=== PATIENT | male | born 2000 | race Caucasian/White ===

== ENCOUNTER 2018-03-27 23:42 | Observation (INO) | payer BC ==
[2018-03-27] MEDS ORDERED: SODIUM CHLORIDE 0.9% 1,000 ML IV STA (23:57)
[2018-03-28] MEDS ORDERED: MORPHINE SULFATE 2 MG/ML SYRINGE IVP STA (00:09)
[2018-03-28] MEDS ORDERED: KETOROLAC 30 MG/ML 1 ML VIAL IVP STA (00:09)
[2018-03-28] MEDS ORDERED: ONDANSETRON 4 MG/2 ML VIAL IVP STA (00:09)
--- NOTE | 2018-03-28 00:33 | ED ---
Abdominal Pain HPI <ViktoriyaPhan weems - Last Filed: 03/28/18 02:23> - General Source: patient, RN notes reviewed, old records reviewed Mode of arrival: ambulatory Limitations: no limitations <MarkMeka - Last Filed: 03/28/18 02:28> - General Chief Complaint: Abdominal Pain Stated Complaint: Abd Pain Time Seen by Provider: 03/27/18 23:51 - History of Present Illness Initial Comments: Patient is a 17-year-old male who presents emergency Department due to complaint of onset of left-sided abdominal pain 4 hours. Patient reports that he's had some associated nausea and vomiting. He reports that he initially started to have pain this afternoon. I discussed pain. He did have a large bowel movement. Patient reports he continued have some pain. He did do some stool softeners and used a suppository but did not have a bowel movement his pain progressively got worse. Worse with ambulation and movement. Patient reports is felt chilled. No changes in urination. No chest pain or short of breath. He has no past medical history. (Meka Flores) - Related Data Home Medications Medication Instructions Recorded Confirmed No Known Home Medications 09/22/15 09/22/15 Allergies Allergy/AdvReac Type Severity Reaction Status Date / Time No Known Allergies Allergy Verified 03/27/18 23:47 Review of Systems ROS Other: All systems not noted in ROS Statement are negative. <ViktoriyadankPhan - Last Filed: 03/28/18 02:23> ROS Other: All systems not noted in ROS Statement are negative. <Yolande Floresily - Last Filed: 03/28/18 02:28> ROS Statement: Those systems with pertinent positive or pertinent negative responses have been documented in the HPI. Past Medical History Past Medical History: No Reported History History of Any Multi-Drug Resistant Organisms: None Reported Past Surgical History: No Surgical Hx Reported Past Psychological History: Anxiety, Depression Smoking Status: Current every day smoker Past Alcohol Use History: Occasional Past Drug Use History: Marijuana <Meka Flores - Last Filed: 03/28/18 02:28> General Exam <ViktoriyadankPhan - Last Filed: 03/28/18 02:23> Limitations: no limitations General appearance: alert, in no apparent distress Head exam: Present: atraumatic, normocephalic, normal inspection Eye exam: Present: normal appearance, PERRL, EOMI. Absent: scleral icterus, conjunctival injection, periorbital swelling ENT exam: Present: normal exam, mucous membranes moist Neck exam: Present: normal inspection. Absent: tenderness, meningismus, lymphadenopathy Respiratory exam: Present: normal lung sounds bilaterally. Absent: respiratory distress, wheezes, rales, rhonchi, stridor Cardiovascular Exam: Present: regular rate, normal rhythm, normal heart sounds. Absent: systolic murmur, diastolic murmur, rubs, gallop, clicks GI/Abdominal exam: Present: soft, tenderness (Lower quadrant tenderness, guarding or rebound tenderness.), guarding, rebound, normal bowel sounds. Absent: distended, rigid Extremities exam: Present: normal inspection, full ROM, normal capillary refill. Absent: tenderness, pedal edema, joint swelling, calf tenderness Back exam: Present: normal inspection Neurological exam: Present: alert, oriented X3, CN II-XII intact Psychiatric exam: Present: normal affect, normal mood <Meka Flores - Last Filed: 03/28/18 02:28> - General Exam Comments Initial Comments: 17-year-old female. Alert and oriented. Patient appears in moderate discomfort. (Meka Flores) Vital Signs 03/27/18 23:44 Temperature 97 F L Pulse Rate 65 Respiratory 16 Rate Blood Pressure 138/85 O2 Sat by Pulse 100 Oximetry Medical Decision Making - Lab Data Result diagrams: 03/28/18 00:02 03/28/18 00:02 <Phan Mcgovern - Last Filed: 03/28/18 02:23> - Lab Data Result diagrams: 03/28/18 00:02 03/28/18 00:02 <Meka Flores - Last Filed: 03/28/18 02:28> - Medical Decision Making I saw this patient in conjunction with the physician assistant corporate secretary. I performed independent history and physical exam. Agree with case management. Agree with history of physical as well as management. Case discussed with Dr. Davison, who will admit patient. (Phan Mcgovern) Patient is a 17-year-old healthy male presents emergency department today with severe right-sided abdominal pain. Worse over the past 4 hours. He's had multiple blood cells of vomiting. Patient is very thin. Patient was given IV fluids and laboratory obtained. Mild leukocytosis with blood cell count 14, 000. He has significant guarding and rebound tenderness. Patient's computed tomography scan was not 100% conclusive for appendicitis but does note a dilated structure consistent with the appendix. Patient has very little intra- abdominal fat for inflammatory changes. At this time patient's case was discussed with Dr. Huertas who discussed the case with Dr. Goldstein. He accepts admission and request Patient started on IV antibiotics. Patient was admitted this time for IV fluids. Nothing by mouth. Patient started on IV Zosyn. ( Mark,Meka) - Lab Data Lab Results 03/28/18 03/28/18 03/28/18 Range/Units 00:02 00:02 00:02 WBC 14.3 H (4.0-11.0) k/uL RBC 4.95 (4.30-5.90) m/uL Hgb 15.2 (13.0-17.5) gm/dL Hct 45.3 (39.0-53.0) % MCV 91.5 (80.0-100.0) fL MCH 30.6 (25.0-35.0) pg MCHC 33.5 (31.0-37.0) g/dL RDW 12.6 (11.5-15.5) % Plt Count 177 (150-450) k/uL Neutrophils % 90 % Lymphocytes % 7 % Monocytes % 3 % Eosinophils % 0 % Basophils % 0 % Neutrophils # 12.8 H (1.3-7.7) k/uL Lymphocytes # 1.0 (1.0-4.8) k/uL Monocytes # 0.4 (0-1.0) k/uL Eosinophils # 0.0 (0-0.7) k/uL Basophils # 0.0 (0-0.2) k/uL PT 11.7 (9.0-12.0) sec INR 1.2 H (<1.2) APTT 24.8 (22.0-30.0) sec Sodium 138 (137-145) mmol/L Potassium 3.8 (3.5-5.1) mmol/L Chloride 102 (98-107) mmol/L Carbon Dioxide 24 (22-30) mmol/L Anion Gap 12 mmol/L BUN 15 (9-20) mg/dL Creatinine 0.83 (0.66-1.25) mg/dL Est GFR (CKD-EPI)AfAm >90 (>60 ml/min/1.73 sqM) Est GFR (CKD-EPI)NonAf >90 (>60 ml/min/1.73 sqM) Glucose 119 H (74-99) mg/dL Calcium 9.9 (8.4-10.2) mg/dL Total Bilirubin 1.0 (0.2-1.3) mg/dL AST 46 (17-59) U/L ALT 55 (21-72) U/L Alkaline Phosphatase 78 (38-126) U/L Total Protein 7.5 (6.3-8.2) g/dL Albumin 4.8 (3.5-5.0) g/dL Amylase 67 (30-110) U/L Lipase 96 (23-300) U/L Disposition <Phan Mcgovern - Last Filed: 03/28/18 02:23> Is patient prescribed a controlled substance at d/c from ED?: No Time of Disposition: 02:28 <Meka Flores - Last Filed: 03/28/18 02:28> Clinical Impression: Acute appendicitis Disposition: ADMITTED IP TO THIS HOSP Condition: Stable Referrals: Frank Concepcion Jr, DO [Primary Care Provider] - 1-2 days
[2018-03-28 00:40] LABS: Basophils % (A) 0 %; Eosinophils % (A) 0 %; HCT 45.3 % (39.0-53.0); HGB 15.2 gm/dL (13.0-17.5); Lymphocytes % (A) 7 %; MCH 30.6 pg (25.0-35.0); MCHC 33.5 g/dL (31.0-37.0); MCV 91.5 fL (80.0-100.0); Mean Platelet Volume 6.9; Monocytes # (A) 0.4 k/uL (0-1.0); Monocytes % (A) 3 %; Neutrophils # (A) 12.8 k/uL (1.3-7.7); Neutrophils % (A) 90 %; Platelet Count 177 k/uL (150-450); RBC 4.95 m/uL (4.30-5.90); RDW 12.6 % (11.5-15.5); WBC 14.3 k/uL (4.0-11.0)
[2018-03-28 00:49] LABS: INR 1.2 (<1.2); Partial Thromboplastin Time 24.8 sec (22.0-30.0); Prothrombin Time 11.7 sec (9.0-12.0)
[2018-03-28 00:52] LABS: ALT 55 U/L (21-72); AST 46 U/L (17-59); Albumin 4.8 g/dL (3.5-5.0); Alkaline Phosphatase 78 U/L (38-126); Amylase 67 U/L (30-110); Anion Gap 12 mmol/L; Blood Urea Nitrogen 15 mg/dL (9-20); Calcium 9.9 mg/dL (8.4-10.2); Carbon Dioxide 24 mmol/L (22-30); Chloride 102 mmol/L (98-107); Glucose 119 mg/dL (74-99); Lipase 96 U/L (23-300); Potassium 3.8 mmol/L (3.5-5.1); Sodium 138 mmol/L (137-145); Total Protein 7.5 g/dL (6.3-8.2)
--- NOTE | 2018-03-28 02:08 | CT ---
EXAMINATION TYPE: CT abdomen pelvis w con DATE OF EXAM: 03/28/2018 COMPARISON: None HISTORY: RLQ pain CT DLP: 372 mGycm Automated exposure control for dose reduction was used. TECHNIQUE: Helical acquisition of images was performed from the lung bases through the pelvis. CONTRAST: Performed without Oral Contrast and with IV Contrast, patient injected with 100mL mL of Isovue 300. FINDINGS: Lung bases are clear. There is no pleural effusion. Heart size is normal. There is no pericardial eff usion. Liver spleen pancreas gallbladder appear normal. Bile ducts are not dilated. There is no adren al mass. Kidneys show satisfactory contrast opacification. There is no hydronephrosis. Bladder disten ds smoothly. I see no definite free fluid in the pelvis. There is no inguinal hernia. I see no intest inal wall thickening. There are no dilated loops. The appendix is difficult to identify because of la ck of intra-abdominal fat. I see no fat stranding. There is however a tubular structure that measures 10 m that could be slightly dilated fluid-filled appendix. There is no evidence of mesenteric edema or adenopathy. There is no sign of free air. The lumbar spine is intact. Bony pelvis is intact. IMPRESSION: I SEE NO INFLAMMATORY CHANGES OF THE FAT IN THE RIGHT LOWER QUADRANT. THERE IS HOWEVER POSSIBLE FLUID FILLED DISTENDED APPENDIX. APPENDICITIS IS NOT EXCLUDED.
[2018-03-28] MEDS ORDERED: ACETAMINOPHEN TAB 325 MG TAB PO PRN ×2 (02:24→18:29)
[2018-03-28] MEDS ORDERED: NALOXONE 0.4 MG/ML 1 ML VIAL IV PRN ×2 (02:24→18:29)
[2018-03-28] MEDS ORDERED: ONDANSETRON 4 MG/2 ML VIAL IVP PRN (02:24)
[2018-03-28] MEDS ORDERED: IBUPROFEN 400 MG TAB PO PRN (02:24)
[2018-03-28] MEDS ORDERED: PIPERACILLIN-TAZOBACTAM 3.375 GM in SODIUM CHLORIDE 0.9% 100 ML IVPB STA (02:26)
[2018-03-28 04:30] VITALS: BMI 20.2
[2018-03-28] MEDS: MORPHINE SULFATE 4 MG/ML SYRINGE IV PRN ×3 (04:35→22:31)
[2018-03-28] MEDS: SODIUM CHLORIDE 0.9% 1,000 ML IV SCH ×3 (04:39→23:32)
[2018-03-28] MEDS: KETOROLAC 30 MG/ML 1 ML VIAL IVP PRN (07:19)
[2018-03-28 10:40] LABS: Amorphous Sediment,Urine Occasional /hpf; Appearance,Urine Clear (Clear); Bilirubin,Urine Negative (Negative); Blood,Urine Trace (Negative); Color,Urine Yellow; Glucose,Urine (UA) Negative (Negative); Ketones,Urine 4+ (Negative); Leukocyte Esterase,Urine Negative (Negative); Mucus,Urine Rare /hpf; Nitrite,Urine Negative (Negative); Protein,Urine 1+ (Negative); RBC,Urine 7 /hpf (0-5); Urobilinogen,Urine <2.0 mg/dL (<2.0); WBC,Urine 2 /hpf (0-5)
[2018-03-28 10:41] LABS: Specific Gravity,Urine >1.050 (1.001-1.035)
--- NOTE | 2018-03-28 11:06 | P.GSHP ---
History of Present Illness H&P Date: 03/28/18 17-year-old male who has no past medical history presented to the emergency room with a chief complaint of developing right lower quadrant abdominal pain onset 4-5 hours prior. Patient stated he felt nauseated did vomit. Patient stated at first he thought he needed to have a bowel movement. Did move his bowels stated he had a large bowel movement continued to have pain. Patient stated he had intense abdominal cramping after having the bowel movement felt like he needed to have another bowel movement did use [id number] stool softener and a suppository stated he did not have a bowel movement after that the pain to the right lower quadrant became more intense. Patient stated he was doubled up could not ambulate walking made it worse. [place] feverish did not take his temp came into the emergency room to be evaluated for the above- mentioned symptoms. White count on admission 14.3 liver enzymes within normal limits amylase 67 lipase 96 in the emergency room had a CAT scan of the abdomen and pelvis with contrast reviewing the report right lower quadrant possible fluid-filled distended appendix appendicitis not excluded no sign of free air - Review of Systems Comment: Essentially unremarkable except as mentioned in the present illness Past Medical History Past Medical History: No Reported History History of Any Multi-Drug Resistant Organisms: None Reported Past Surgical History: No Surgical Hx Reported Past Psychological History: Anxiety, Depression Smoking Status: Current some day smoker Past Alcohol Use History: Occasional Past Drug Use History: Marijuana Medications and Allergies Home Medications Medication Instructions Recorded Confirmed Type No Known Home Medications 03/28/18 03/28/18 History Allergies Allergy/AdvReac Type Severity Reaction Status Date / Time No Known Allergies Allergy Verified 03/28/18 09:42 Surgical - Exam Vital Signs Temp Pulse Resp BP Pulse Ox 97 F L 65 16 138/85 100 03/27/18 23:44 03/27/18 23:44 03/27/18 23:44 03/27/18 23:44 03/27/18 23:44 GENERAL APPEARANCE: 17-year-old male patient is alert, oriented, in no acute distress. Just received IV pain medication states effective for reducing pain VITAL SIGNS: Reviewed HEENT: Head is normocephalic and atraumatic. Pupils are equal and reactive. The nares are patent. Oropharynx is clear without lesions. NECK: Supple without lymphadenopathy. Traches midline. HEART: S1, S2. Regular rate and rhythm. No murmur noted denying chest pain LUNGS: No crackles or wheezes are heard. Good air movement bilaterally no cough no shortness of breath ABDOMEN: Soft, tenderness right lower quadrant, nondistended with good bowel sounds. No peritoneal signs. No palpable organomegaly or masses. EXTREMITIES: Normal skin color and turgor. No cyanosis, rash, ulceration, clubbing or edema. Radial pedal pulses are 2/4 bilaterally. NEUROLOGICAL: No focal deficits. Strength and sensation are grossly intact. Results - Labs 03/28/18 00:02 03/28/18 00:02 Abnormal Lab Results - Last 24 Hours (Table) 03/27/18 03/28/18 03/28/18 Range/Units 09:30 00:02 00:02 WBC 14.3 H (4.0-11.0) k/uL Neutrophils # 12.8 H (1.3-7.7) k/uL INR (<1.2) Glucose 119 H (74-99) mg/dL Ur Specific [place] >1.050 H (1.001-1.035) Urine Protein 1+ H (Negative) Urine Ketones 4+ H (Negative) Urine Blood Trace H (Negative) Urine RBC 7 H (0-5) /hpf Amorphous Sediment Occasional H (None) /hpf Urine Mucus Rare H (None) /hpf 03/28/18 Range/Units 00:02 WBC (4.0-11.0) k/uL Neutrophils # (1.3-7.7) k/uL INR 1.2 H (<1.2) Glucose (74-99) mg/dL Ur Specific [place] (1.001-1.035) Urine Protein (Negative) Urine Ketones (Negative) Urine Blood (Negative) Urine RBC (0-5) /hpf Amorphous Sediment (None) /hpf Urine Mucus (None) /hpf Diabetes panel 03/28/18 Range/Units 00:02 Sodium 138 (137-145) mmol/L Potassium 3.8 (3.5-5.1) mmol/L Chloride 102 (98-107) mmol/L Carbon Dioxide 24 (22-30) mmol/L BUN 15 (9-20) mg/dL Creatinine 0.83 (0.66-1.25) mg/dL Glucose 119 H (74-99) mg/dL Calcium 9.9 (8.4-10.2) mg/dL AST 46 (17-59) U/L ALT 55 (21-72) U/L Alkaline Phosphatase 78 (38-126) U/L Total Protein 7.5 (6.3-8.2) g/dL Albumin 4.8 (3.5-5.0) g/dL Calcium panel 03/28/18 Range/Units 00:02 Calcium 9.9 (8.4-10.2) mg/dL Albumin 4.8 (3.5-5.0) g/dL Pituitary panel 03/28/18 Range/Units 00:02 Sodium 138 (137-145) mmol/L Potassium 3.8 (3.5-5.1) mmol/L Chloride 102 (98-107) mmol/L Carbon Dioxide 24 (22-30) mmol/L BUN 15 (9-20) mg/dL Creatinine 0.83 (0.66-1.25) mg/dL Glucose 119 H (74-99) mg/dL Calcium 9.9 (8.4-10.2) mg/dL Adrenal panel 03/28/18 Range/Units 00:02 Sodium 138 (137-145) mmol/L Potassium 3.8 (3.5-5.1) mmol/L Chloride 102 (98-107) mmol/L Carbon Dioxide 24 (22-30) mmol/L BUN 15 (9-20) mg/dL Creatinine 0.83 (0.66-1.25) mg/dL Glucose 119 H (74-99) mg/dL Calcium 9.9 (8.4-10.2) mg/dL Total Bilirubin 1.0 (0.2-1.3) mg/dL AST 46 (17-59) U/L ALT 55 (21-72) U/L Alkaline Phosphatase 78 (38-126) U/L Total Protein 7.5 (6.3-8.2) g/dL Albumin 4.8 (3.5-5.0) g/dL Assessment and Plan Assessment: Impression Present on admission right lower quadrant pain suspect due to appendicitis CAT scan abdomen and pelvis with contrast obtained on March 28 showed possible fluid-filled distended appendix appendicitis not excluded Present on admission leukocytosis suspect reactive Plan IV fluid for hydration IV Zosyn as ordered Scheduled today for a lap appendectomy Nothing by mouth Pain control Will follow clinical course closely with further recommendations The above impression and plan of care have been discussed and directed by signing physician. Linda St nurse practitioner acting as scribe for signing physician.
[2018-03-28] MEDS: PIPERACILLIN-TAZOBACTAM 3.375 GM in SODIUM CHLORIDE 0.9% 100 ML IVPB SCH ×2 (11:38→19:30)
[2018-03-28] MEDS ORDERED: IV FLUID CONTINUATION 600 ML IV ONE (12:30)
[2018-03-28] MEDS ORDERED: HYDROmorphone 1 MG/ML 1 ML SYRINGE IVP ONE (13:56)
[2018-03-28] MEDS ORDERED: SODIUM CHLORIDE 0.9% 50 ML with ceFAZolin 2,000 MG IV ONE ×2 (17:07)
[2018-03-28] MEDS ORDERED: BUPIVACAIN-EPI 0.25%-1:200,000 30 ML VIAL SQ ONE (17:26)
[2018-03-28] MEDS ORDERED: ONDANSETRON 4 MG/2 ML VIAL ONE (17:58)
[2018-03-28] MEDS ORDERED: NEOSTIGMINE 1 MG/ML 10 ML VIAL ONE (17:58)
[2018-03-28] MEDS ORDERED: fentaNYL (PF) 50 MCG/ML 2 ML AMP ONE (17:58)
[2018-03-28] MEDS ORDERED: ROCURONIUM BROMIDE 10 MG/ML 10 ML VIAL IV ONE (17:58)
[2018-03-28] MEDS ORDERED: GLYCOPYRROLATE 0.2 MG/ML 2 ML VIAL ONE (17:58)
[2018-03-28] MEDS ORDERED: DEXAMETHASONE SOD PHOS (MDV) 100 MG/10 ML VIAL ONE (17:58)
[2018-03-28] MEDS ORDERED: LIDOCAINE 1% INJ 10MG/ML (20 ML MDV) ONE (17:58)
[2018-03-28] MEDS ORDERED: PROPOFOL 10 MG/ML 20 ML VIAL IV ONE (17:58)
[2018-03-28] MEDS ORDERED: MIDAZOLAM 2 MG/2 ML VIAL ONE (17:58)
[2018-03-28] MEDS ORDERED: LACTATED RINGERS 1,000 ML IV ONE ×2 (18:18→18:29)
--- NOTE | 2018-03-28 18:28 | P.OP ---
Date of Procedure: 03/28/18 Preoperative Diagnosis: Acute appendicitis Postoperative Diagnosis: Acute appendicitis Procedure(s) Performed: Laparoscopic appendectomy Anesthesia: ARI Surgeon: Adolfo Davison Estimated Blood Loss (ml): 5 Pathology: other (Appendix) Condition: stable Disposition: PACU Description of Procedure: HaThe patient's placed on the operating table in the supine position. The patient received general anesthesia. The abdomen was prepped and draped in the usual sterile fashion. The skin was anesthetized 1% local Xylocaine at the trocar sites. Using an 11 blade the skin was incised at the umbilicus. The umbilicus was grasped with a [place] clamp and then a Veress needle was placed into the peritoneal cavity. Position of the Veress needle was confirmed with positive drop test. After adequate insufflation a 5 mm trocar was placed into the peritoneal cavity. The abdomen was further insufflated. And then the laparoscope was placed in the peritoneal cavity. Next a 5 mm trocar was placed in the midline suprapubic position. And then a 10 mm trocar was placed in the midline epigastric position. The patient was rotated with the right side up and in Trendelenburg. The appendix was visualized. The appendix appeared to be inflamed. The appendix was grasped and then using the Harmonic scissors the mesoappendix was divided. A PDS Endoloop was then placed around the base of the appendix. And then the appendix was divided using Harmonic scissors. The appendix was placed into an Endo Catch and brought out through the 10 mm trocar site. The abdomen was irrigated. There is no bleeding seen. The trochars withdrawn. The skin was closed interrupted 3-0 Monocryl suture. Dermabond dressing was applied. Patient was sent to recovery room in stable condition.
[2018-03-28] MEDS ORDERED: HYDROcodone/APAP 5-325MG 1 EACH TAB PO PRN (18:29)
[2018-03-28] MEDS ORDERED: HYDROmorphone 1 MG/ML 1 ML SYRINGE IVP PRN (18:29)
[2018-03-28] MEDS ORDERED: METOCLOPRAMIDE 5 MG/ML 2 ML VIAL IVP PRN (18:29)
[2018-03-28 18:46] VITALS: RESP 16
[2018-03-28] MEDS ORDERED: KETOROLAC 30 MG/ML 1 ML VIAL IVP ONE (18:48)
[2018-03-28] MEDS: HYDROmorphone 1 MG/ML 1 ML SYRINGE IVP ONE ×2 (18:53→19:02)
[2018-03-29] MEDS: PIPERACILLIN-TAZOBACTAM 3.375 GM in SODIUM CHLORIDE 0.9% 100 ML IVPB SCH ×2 (02:15→11:24)
[2018-03-29] MEDS: MORPHINE SULFATE 4 MG/ML SYRINGE IV PRN ×2 (02:15→07:07)
[2018-03-29 07:19] VITALS: BP 102/59; TEMP 97.9
[2018-03-29 07:48] LABS: Basophils % (A) 0 %; Eosinophils % (A) 0 %; HCT 39.4 % (39.0-53.0); HGB 13.7 gm/dL (13.0-17.5); Lymphocytes # (A) 0.6 k/uL (1.0-4.8); Lymphocytes % (A) 6 %; MCH 32.1 pg (25.0-35.0); MCHC 34.8 g/dL (31.0-37.0); MCV 92.4 fL (80.0-100.0); Mean Platelet Volume 7.2; Monocytes # (A) 0.4 k/uL (0-1.0); Monocytes % (A) 4 %; Neutrophils # (A) 8.3 k/uL (1.3-7.7); Neutrophils % (A) 89 %; Platelet Count 135 k/uL (150-450); RBC 4.26 m/uL (4.30-5.90); RDW 12.2 % (11.5-15.5); WBC 9.3 k/uL (4.0-11.0)
[2018-03-29 08:05] LABS: ALT 36 U/L (21-72); AST 22 U/L (17-59); Albumin 3.6 g/dL (3.5-5.0); Alkaline Phosphatase 52 U/L (38-126); Anion Gap 7 mmol/L; Blood Urea Nitrogen 11 mg/dL (9-20); Calcium 9.2 mg/dL (8.4-10.2); Carbon Dioxide 24 mmol/L (22-30); Chloride 107 mmol/L (98-107); Glucose 108 mg/dL (74-99); Potassium 4.8 mmol/L (3.5-5.1); Sodium 138 mmol/L (137-145); Total Bilirubin 1.3 mg/dL (0.2-1.3)
[2018-03-29 08:53] VITALS: PULSE 63
[2018-03-29] MEDS ORDERED: ENOXAPARIN 40 MG/0.4 ML SYRINGE SQ SCH (09:00)
[2018-03-29] MEDS: SODIUM CHLORIDE 0.9% 1,000 ML IV SCH (11:24)
[2018-03-29] MEDS: KETOROLAC 30 MG/ML 1 ML VIAL IVP PRN (11:47)
--- NOTE | 2018-03-29 12:57 | P.DS ---
Providers Date of admission: 03/28/18 03:42 Expected date of discharge: 03/29/18 Attending physician: Adolfo Davison Consults: 03/28/18 18:29 Consult Physician Routine Consulting Provider: Frank Concepcion Jr Consult Reason/Comments: Medical management Do you want consulting provider notified?: Yes Primary care physician: Laird Hospital Course: A 17-year-old who presented to the emergency room with a chief complaint of developing right lower quadrant abdominal pain with nausea and vomiting. Patient stated the pain occurred 4-5 hours prior to presenting to the emergency room. Patient stated he could not walk a couple to from the pain in his right lower quadrant. Patient stated that walking made it worse. Did have a CAT scan in the emergency room it showed possible distended appendix appendicitis is not excluded no sign of free air. Liver enzymes were normal. White count 14.3. On admission repeat the CBC down 9.3 Patient underwent on March 28 laparoscopic appendectomy for acute appendicitis postop no events surgical dressing site dry patient was ambulatory on the unit pain medication effective for pain control and tolerating diet felt to be appropriate to be discharged Impression discharge diagnoses Present on admission right lower quadrant abdominal pain suspect due to an acute appendicitis Status post March 28 laparoscopic appendectomy for acute appendicitis Present on admission leukocytosis suspect reactive resolved The above impression and plan of care have been discussed and directed by signing physician. Linda St nurse practitioner acting as scribe for signing physician. Patient Condition at Discharge: Stable Plan - Discharge Summary Discharge Rx Participant: Yes New Discharge Prescriptions: New Acetaminophen Tab [Tylenol] 650 mg PO Q6HR PRN #30 tab PRN Reason: Mild Pain Or Fever > 100.5 HYDROcodone/APAP 5-325MG [[place] 5-325] 1 each PO Q4HR PRN #12 tab PRN Reason: Mild Pain Discharge Medication List Acetaminophen Tab [Tylenol] 650 mg PO Q6HR PRN #30 tab 03/29/18 [Rx] HYDROcodone/APAP 5-325MG [[place] 5-325] 1 each PO Q4HR PRN #12 tab 03/29/18 [Rx] Follow up Appointment(s)/Referral(s): Frank Concepcion Jr, [Primary Care Provider] - 2 Weeks Adolfo Davison MD [STAFF PHYSICIAN] - 1 Week Activity/Diet/Wound Care/Special Instructions: No tub bath for six weeks. Shower daily. No lifting over 10 pounds for the next 2 weeks. do not remove the plastic dressing until seen in follow-up visit May use ice packs to surgical site. No driving while taking narcotic for pain. Discharge Disposition: HOME SELF-CARE
--- NOTE | 2018-03-29 14:07 | P.CONS ---
History of Present Illness - Reason for Consult Consult date: 03/29/18 medical management Requesting physician: Adolfo Davison - Chief Complaint abdominal pain - History of Present Illness 17-year-old male who presented to the emergency room with a chief complaint of abdominal pain. The patient was found to have appendicitis. The patient underwent laparoscopic appendectomy on 03/28/[address] Concepcion was consulted for medical management. The patient denies previous medical history or surgical history. He states he takes no medications at home. Patient does report he has a medical marijuana card and smokes marijuana on a regular basis. The patient was seen postoperatively in the surgical unit. patient denies shortness of breath or chest pain. Denies cough or congestion. Pain is tolerable at this time. Blood pressure has been stable. He is afebrile. Maintaining oxygen saturations greater then 92% on room air. White count 9.3. Hemoglobin 13.7. Review of Systems Those systems with pertinent positive or pertinent negative responses have been documented in the HPI Past Medical History Past Medical History: No Reported History History of Any Multi-Drug Resistant Organisms: None Reported Past Surgical History: No Surgical Hx Reported Past Psychological History: Anxiety, Depression Smoking Status: Current some day smoker Past Alcohol Use History: Occasional Past Drug Use History: Marijuana Medications and Allergies Home Medications Medication Instructions Recorded Confirmed Type No Known Home Medications 03/28/18 03/28/18 History Allergies Allergy/AdvReac Type Severity Reaction Status Date / Time No Known Allergies Allergy Verified 03/28/18 09:42 Physical Exam Vitals: Vital Signs Temp Pulse Pulse Resp BP Pulse Ox 03/29/18 07:00 97.9 F 61 63 16 102/59 98 03/29/18 00:34 97.4 F L 63 16 99/53 97 03/28/18 21:25 54 L 111/62 95 03/28/18 21:08 63 107/52 96 03/28/18 20:54 57 L 92/52 97 03/28/18 20:37 55 L 100/60 97 03/28/18 20:22 59 L 99/59 98 03/28/18 20:07 64 110/63 96 03/28/18 19:52 60 104/64 96 03/28/18 19:37 66 107/62 94 L 03/28/18 19:22 97.5 F L 62 107/65 96 03/28/18 19:06 72 16 117/73 95 03/28/18 18:51 76 16 124/78 96 03/28/18 18:36 98 F 82 16 138/89 98 03/28/18 16:43 98.2 F 58 L 114/73 100 03/28/18 15:00 98.0 F 60 18 107/66 99 03/28/18 12:46 98.4 F 58 L 117/71 98 Intake and Output 03/28/18 03/29/18 03/29/18 22:59 06:59 14:59 Intake Total 1100 900 Balance 1100 900 Intake: IV 1100 Intake, IV Titration 900 Amount Lactated Ringers 1,000 ml 900 @ 100 mls/hr IV .Q10H ONE Rx#:[id number] Other: Voiding Method Toilet # Voids 2 3 GENERAL: This is a 17-year-old male in no apparent distress at the time of examination. Pleasant and cooperative. HEENT: Head is atraumatic, normocephalic. Pupils are equal, round, and reactive to light. Sclerae anicteric. Conjunctivae are clear. Mucus membranes of the mouth are moist. Neck is supple. RESPIRATORY: Clear to auscultation. No wheezes, rales, or rhonchi. No use of accessory muscles. Patient maintaining oxygen saturation greater than 92% CARDIOVASCULAR: Regular rate and rhythm. S1 and S2 noted. No systolic or diastolic murmur auscultated. No JVD noted. No S3 or S4 noted. GASTROINTESTINAL: No distention noted. Abdomen soft and round. Bowel sounds auscultated x 4 quadrants. Appropriate surgical tenderness noted. INTEGUMENTARY: No cyanosis. No jaundice. No rashes noted. No cellulitis noted. EXTREMITIES: 2+ peripheral pulses. No evidence of peripheral edema. NEUROLOGIC: Cranial nerves II-XII intact. PSYCHIATRIC: Awake, alert, and oriented X 3. Appropriate affect. Intact judgement and insight. Results CBC & Chem 7: 03/29/18 07:26 03/29/18 07:26 Labs: Abnormal Lab Results - Last 24 Hours (Table) 03/29/18 03/29/18 Range/Units 07:26 07:26 RBC 4.26 L (4.30-5.90) m/uL Plt Count 135 L (150-450) k/uL Neutrophils # 8.3 H (1.3-7.7) k/uL Lymphocytes # 0.6 L (1.0-4.8) k/uL Glucose 108 H (74-99) mg/dL Total Protein 6.0 L (6.3-8.2) g/dL Microbiology - Last 24 Hours (Table) 03/28/18 00:02 Blood Culture - Preliminary Blood No Growth after 24 hours Assessment and Plan Plan: ASSESSMENT: Appendicitis, status post laparoscopic appendectomy Abdominal pain, secondary to above Cannabis use PLAN: Continue postoperative surgical care per Dr. Davison. pain control. Activity as tolerated. GI/DVT prophylaxis. Monitor vital signs and address as appropriate. Further recommendations pending patient's course. Thank you for this consultation We will continue to follow with Alli during his hospitalization Patient is cleared for discharge from a medical standpoint when cleared by attending/admitting physician Nurse practitioner note has been reviewed by physician. Signing provider agrees with the documented findings, assessment, and plan of care.
== END 2018-03-29 14:30 | disposition home or self-care (01) ==
LOC: EC 23:42 → 4SSUR 03-28 03:42
PROVIDERS: ADMIT Surgery; ATTEND Surgery
DX: K35.80 Unspecified acute appendicitis (principal); D72.829 Elevated white blood cell count, unspecified; F41.9 Anxiety disorder, unspecified; F32.9 Major depressive disorder, single episode, unspecified; F17.200 Nicotine dependence, unspecified, uncomplicated; Z79.899 Other long term (current) drug therapy
CPT/HCPCS: 99285 ×2; 44970; 96374 ×2; 96375 ×2; 96361 ×2; 96376; 36415; 88304; 80053 ×2; 82150; 83690; 85025 ×2; 85610; 85730; 81001; 87040; 74177; G0378 ×2; J2543 ×2; J2250; J2270 ×3; J2710; J2405; J2001; J1650; J3010; J1885 ×2; J1170; J0690; J1100; J2704; Q9967

== ENCOUNTER 2019-03-10 20:46 | Emergency (ER) | payer BC ==
[2019-03-10] MEDS ORDERED: MORPHINE SULFATE 2 MG/ML SYRINGE IVP STA (21:25)
--- NOTE | 2019-03-10 21:54 | XR ---
EXAMINATION TYPE: XR chest 1V portable DATE OF EXAM: 03/10/2019 COMPARISON: NONE HISTORY: Chest pain TECHNIQUE: Single frontal view of the chest is obtained. FINDINGS: Heart and mediastinum are normal. Lungs are clear. Diaphragm is normal. Bony thorax appear s normal. IMPRESSION: Normal chest.
[2019-03-10] MEDS ORDERED: MORPHINE SULFATE 4 MG/ML SYRINGE IM STA (21:58)
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
[2019-03-10] MEDS ORDERED: ACET/COD 300 MG/30 MG STARTER PACK 6 TAB BTL PO STA (23:01)
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
[2019-03-10 23:28] VITALS: BP 116/78; PULSE 64; RESP 18; TEMP 98
== END 2019-03-10 23:27 | disposition home or self-care (01) ==
LOC: EC 20:46
DX: S43.101A Unspecified dislocation of right acromioclavicular joint, initial encounter (principal); M54.2 Cervicalgia; Z53.8 Procedure and treatment not carried out for other reasons; Z87.891 Personal history of nicotine dependence; W20.8XXA Other cause of strike by thrown, projected or falling object, initial encounter; Y93.89 Activity, other specified
CPT/HCPCS: 71045; 72125; 70450; 99284; 96372; J2270

== ENCOUNTER 2022-12-23 10:01 | Emergency (ER) | payer BC ==
[2022-12-23 10:10] VITALS: RESP 18
--- NOTE | 2022-12-23 11:13 | ED ---
General Adult HPI - General Chief complaint: Urogenital Stated complaint: testical pain Source: patient Mode of arrival: ambulatory - History of Present Illness Initial comments: 22-year-old male presenting to the ED with a chief complaint of testicular pain. Patient states he has had intermittent left testicular pain and swelling over the past couple months. Denies dysuria or discharge. No urinary complaints however states when he strains hard while urinating this reproduces the pain. No other complaints. - Related Data Previous Rx's Medication Instructions Recorded Acetaminophen Tab [Tylenol] 650 mg PO Q6HR PRN #30 tab 03/29/18 HYDROcodone/APAP 5-325MG [[place] 1 each PO Q4HR PRN #12 tab 03/29/18 5-325] Allergies Allergy/AdvReac Type Severity Reaction Status Date / Time No Known Allergies Allergy Verified 12/23/22 10:10 Review of Systems ROS Statement: Those systems with pertinent positive or pertinent negative responses have been documented in the HPI. ROS Other: All systems not noted in ROS Statement are negative. Past Medical History Past Medical History: No Reported History History of Any Multi-Drug Resistant Organisms: None Reported Past Surgical History: Appendectomy Past Psychological History: Anxiety, Depression Smoking Status: Never smoker, Vaper Past Alcohol Use History: None Reported Past Drug Use History: Marijuana General Exam Limitations: no limitations General appearance: alert, in no apparent distress Eye exam: Present: normal appearance Neck exam: Present: normal inspection Respiratory exam: Present: normal lung sounds bilaterally Cardiovascular Exam: Present: regular rate, normal rhythm GI/Abdominal exam: Present: soft exam: Present: other (Normal testicular lie. No significant scrotal swelling. Left testicular tenderness to palpation. Under area of tenderness small mass felt consistent with a varicocele. Cremasteric reflex intact.) Extremities exam: Present: normal inspection Back exam: Present: normal inspection Neurological exam: Present: alert, oriented X3 Skin exam: Present: warm, dry Course Vital Signs 12/23/22 10:06 Temperature 97.9 F Pulse Rate 71 Respiratory 18 Rate Blood Pressure 125/79 O2 Sat by Pulse 99 Oximetry Medical Decision Making - Medical Decision Making Was pt. sent in by a medical professional or institution (, PA, TECHNICAL PROGRAMS MANAGER, urgent care, hospital, or halfway...) When possible be specific @ -No Did you speak to anyone other than the patient for history (EMS, parent, family, police, friend...)? What history was obtained from this source @ -No Did you review nursing and triage notes (agree or disagree)? Why? @ -I reviewed and agree with nursing and triage notes Were old charts reviewed (outside hosp., previous admission, EMS record, old EKG, old radiological studies, urgent care reports/EKG's, halfway records)? Report findings @ -No old charts were reviewed Differential Diagnosis (chest pain, altered mental status, abdominal pain women, abdominal pain men, vaginal bleeding, weakness, fever, dyspnea, syncope, headache, dizziness, GI bleed, back pain, seizure, CVA, palpatations, mental health, musculoskeletal)? @ -Urinary tract infection, testicular torsion, hydrocele. This is not meant to be an all-inclusive list. EKG interpreted by me (3pts min.). @ -None X-rays interpreted by me (1pt min.). @ -None done CT interpreted by me (1pt min.). @ -None done U/S interpreted by me (1pt. min.). @ -Ultrasound showed small bilateral hydroceles. On the left there is a small varicocele. No evidence of torsion. What testing was considered but not performed or refused? (CT, X-rays, U/S, labs)? Why? @ -None What meds were considered but not given or refused? Why? @ -None Did you discuss the management of the patient with other professionals (professionals i.e. , PA, TECHNICAL PROGRAMS MANAGER, lab, RT, psych nurse, social secretary, evaluation analyst, teacher, program officer, case finisher)? Give summary @ -No Was smoking cessation discussed for >3mins.? @ -No Was critical care preformed (if so, how long)? @ -No Were there social determinants of health that impacted care today? How? (Homelessness, low income, unemployed, alcoholism, drug addiction, transportation, low edu. Level, literacy, decrease access to med. care, alf, rehab)? @ -No Was there de-escalation of care discussed even if they declined (Discuss DNR or withdrawal of care, Hospice)? DNR status @ -No What co-morbidities impacted this encounter? (DM, HTN, Smoking, COPD, CAD, Cancer, CVA, ARF, Chemo, Hep., AIDS, mental health diagnosis, sleep apnea, morbid obesity)? @ -None Was patient admitted / discharged? Hospital course, mention meds given and route, prescriptions, significant lab abnormalities, going to OR and other pertinent info. @ -Discharge. Urinalysis unremarkable. US showed small varicocele on the left. No evidence of torsion. Advised Tylenol/NSAIDs as needed. Provided referral to urology to follow up as needed. Discharged home in stable condition. Discussed return precautions patient who verbalizes agreement. Undiagnosed new problem with uncertain prognosis? @ -No Drug Therapy requiring intensive monitoring for toxicity (Heparin, Nitro, Insulin, Cardizem)? @ -No Were any procedures done? @ -No Diagnosis/symptom? @ -Varicocele Acute, or Chronic, or Acute on Chronic? @ -Chronic Uncomplicated (without systemic symptoms) or Complicated (systemic symptoms)? @ -Uncomplicated Side effects of treatment? @ -No Exacerbation, Progression, or Severe Exacerbation? @ -No Poses a threat to life or bodily function? How? (Chest pain, [place], [place], pneumonia, PE, COPD, DKA, ARF, appy, cholecystitis, CVA, Diverticulitis, Homicidal, Suicidal, threat to staff... and all critical care pts) @ -No - Lab Data Lab Results 12/23/22 Range/Units 11:36 Urine Color Light Yellow Urine Appearance Clear (Clear) Urine pH 6.5 (5.0-8.0) Ur Specific [place] 1.015 (1.001-1.035) Urine Protein Negative (Negative) Urine Glucose (UA) Negative (Negative) Urine Ketones Negative (Negative) Urine Blood Negative (Negative) Urine Nitrite Negative (Negative) Urine Bilirubin Negative (Negative) Urine Urobilinogen <2.0 (<2.0) mg/dL Ur Leukocyte Esterase Negative (Negative) Disposition Clinical Impression: Varicocele Disposition: HOME SELF-CARE Condition: Good Instructions (If sedation given, give patient instructions): Varicocele (ED), Testicle Pain (ED) Is patient prescribed a controlled substance at d/c from ED?: No Referrals: Frank Concepcion Jr, DO [Doctor of Osteopathic Medicine] - 1-2 days Yohan Hernandez MD [STAFF PHYSICIAN] - 1-2 days Time of Disposition: 12:53
[2022-12-23 12:05] LABS: Appearance,Urine Clear (Clear); Color,Urine Light Yellow; PH, Urine 6.5 (5.0-8.0); Specific Gravity,Urine 1.015 (1.001-1.035)
[2022-12-23 12:06] LABS: Bilirubin,Urine Negative (Negative); Blood,Urine Negative (Negative); Glucose,Urine (UA) Negative (Negative); Ketones,Urine Negative (Negative); Leukocyte Esterase,Urine Negative (Negative); Nitrite,Urine Negative (Negative); Protein,Urine Negative (Negative); Urobilinogen,Urine <2.0 mg/dL (<2.0)
--- NOTE | 2022-12-23 12:34 | US ---
EXAMINATION TYPE: US scrotum with doppler. TECHNIQUE: Grayscale and color Doppler Duplex imaging performed of the scrotum. DATE OF EXAM: 12/23/2022 COMPARISON: NONE CLINICAL INDICATION: Male, 22 years old with history of L testicular pain; left lateral and inferior testicle pain ongoing for a few months, no swelling, no injury, feels like a cord to the patient EXAM MEASUREMENTS: TESTICLES: Right Testicle: 4.3 x 3.6 x 2.6 cm Left Testicle: 4.3 x 3.0 x 2.3 cm EPIDIDYMIS HEAD: Right Epididymis: 1.0 cm Left Epididymis: 0.8 cm Doppler performed to assess for testicular vascularity; good bilateral color flow and waveforms are s een. There is no evidence of testicular torsion. Presence of hydroceles: mild bilaterally in lateral views Presence of varicoceles: yes on the left at site of patient's pain IMPRESSION: 1. No testicular mass. There are tiny bilateral hydroceles. 2. Varicocele is present on the left and is seen while scanning at the site of patient's pain.
[2022-12-23 13:04] VITALS: BP 111/72; PULSE 81; TEMP 98.2
== END 2022-12-23 13:04 | disposition home or self-care (01) ==
LOC: EC 10:01
DX: I86.1 Scrotal varices (principal); N43.3 Hydrocele, unspecified; F17.290 Nicotine dependence, other tobacco product, uncomplicated; F12.90 Cannabis use, unspecified, uncomplicated
CPT/HCPCS: 76870; 81003; 93975; 99284

== ENCOUNTER 2023-07-19 09:38 | Emergency (ER) | payer OTHER, BC ==
[2023-07-19 09:46] VITALS: RESP 18; TEMP 97.6
--- NOTE | 2023-07-19 10:34 | XR ---
EXAMINATION TYPE: XR hand complete RT DATE OF EXAM: 07/19/2023 COMPARISON: NONE HISTORY: 22-year-old male laceration second and fourth digits, pain. TECHNIQUE: 3 views FINDINGS: No retained radiopaque foreign body seen. No acute fracture, subluxation, or dislocation. J oint spaces are maintained. IMPRESSION: No acute osseous abnormality seen. No retained radiopaque foreign body.
--- NOTE | 2023-07-19 10:39 | ED ---
Upper Extremity HPI - General Chief Complaint: Extremity Injury, Upper Stated Complaint: [facility]-Hand injury Time Seen by Provider: 07/19/23 09:47 Source: patient, RN notes reviewed Mode of arrival: ambulatory Limitations: no limitations - History of Present Illness Initial Comments: 22-year-old male presents emergency department with chief complaint of right hand injury. Patient states that he had a part at work found to his hand he states it weighed approximately 90 pounds. Patient states tetanus up-to-date he has a small abrasion he has pain over his fourth and fifth metacarpal region. No paresthesias - Related Data Previous Rx's Medication Instructions Recorded Acetaminophen Tab [Tylenol] 650 mg PO Q6HR PRN #30 tab 03/29/18 HYDROcodone/APAP 5-325MG [[place] 1 each PO Q4HR PRN #12 tab 03/29/18 5-325] Allergies Allergy/AdvReac Type Severity Reaction Status Date / Time No Known Allergies Allergy Verified 12/23/22 10:10 Review of Systems ROS Statement: Those systems with pertinent positive or pertinent negative responses have been documented in the HPI. ROS Other: All systems not noted in ROS Statement are negative. Past Medical History Past Medical History: No Reported History History of Any Multi-Drug Resistant Organisms: None Reported Past Surgical History: Appendectomy Past Psychological History: Anxiety, Depression Smoking Status: Never smoker, Vaper Past Alcohol Use History: None Reported Past Drug Use History: Marijuana General Exam Limitations: no limitations General appearance: alert, in no apparent distress Head exam: Present: atraumatic, normocephalic, normal inspection Respiratory exam: Present: normal lung sounds bilaterally. Absent: respiratory distress, wheezes, rales, rhonchi, stridor Cardiovascular Exam: Present: regular rate, normal rhythm, normal heart sounds. Absent: systolic murmur, diastolic murmur, rubs, gallop, clicks Extremities exam: Present: other (Right hand there is a small abrasion by fourth MCP region, tenderness with palpation pain with range of motion of fourth and fifth digit.) Neurological exam: Present: alert Skin exam: Present: warm, dry, intact, normal color. Absent: rash Course Vital Signs 07/19/23 09:44 Temperature 97.6 F Pulse Rate 73 Respiratory 18 Rate Blood Pressure 128/73 O2 Sat by Pulse 98 Oximetry Medical Decision Making - Medical Decision Making Was pt. sent in by a medical professional or institution ([facility], LOG HANDLER, urgent care, hospital, or fpc...) When possible be specific @ -[No] Did you speak to anyone other than the patient for history (EMS, parent, family, police, friend...)? What history was obtained from this source @ -[No] Did you review nursing and triage notes (agree or disagree)? Why? @ -[I reviewed and agree with nursing and triage notes] Were old charts reviewed (outside hosp., previous admission, EMS record, old EKG, old radiological studies, urgent care reports/EKG's, fpc records)? Report findings @ -[No old charts were reviewed] Differential Diagnosis (chest pain, altered mental status, abdominal pain women, abdominal pain men, vaginal bleeding, weakness, fever, dyspnea, syncope, headache, dizziness, GI bleed, back pain, seizure, CVA, palpatations, mental health, musculoskeletal)? @ -[Hand contusion, hand fracture EKG interpreted by me (3pts min.). @ -[None X-rays interpreted by me (1pt min.). @ -X-ray right hand shows no acute fracture or dislocation CT interpreted by me (1pt min.). @ -[None done] U/S interpreted by me (1pt. min.). @ -[None done] What testing was considered but not performed or refused? (CT, X-rays, U/S, labs)? Why? @ -[None] What meds were considered but not given or refused? Why? @ -[None] Did you discuss the management of the patient with other professionals (professionals i.e. [facility], LOG HANDLER, lab, RT, psych nurse, renal social worker, machine room engineer, teacher, commissioned security officer, case manager specialist)? Give summary @ -[No] Was smoking cessation discussed for >3mins.? @ -[No] Was critical care preformed (if so, how long)? @ -[No] Were there social determinants of health that impacted care today? How? (Homeles sness, low income, unemployed, alcoholism, drug addiction, transportation, low edu. Level, literacy, decrease access to med. care, half-way, rehab)? @ -[No] Was there de-escalation of care discussed even if they declined (Discuss DNR or withdrawal of care, Hospice)? DNR status @ -[No] What co-morbidities impacted this encounter? (DM, HTN, Smoking, COPD, CAD, Cancer, CVA, ARF, Chemo, Hep., AIDS, mental health diagnosis, sleep apnea, morbid obesity)? @ -[None] Was patient admitted / discharged? Hospital course, mention meds given and route, prescriptions, significant lab abnormalities, going to OR and other pertinent info. @ -Discharge patient presented for right hand injury x-rays are negative for acute fracture. Patient is discharged in stable condition return pressure discussed. Undiagnosed new problem with uncertain prognosis? @ -[No] Drug Therapy requiring intensive monitoring for toxicity (Heparin, Nitro, Insulin, Cardizem)? @ -[No] Were any procedures done? @ -[No] Diagnosis/symptom? @ -Right hand contusion Acute, or Chronic, or Acute on Chronic? @ -Acute Uncomplicated (without systemic symptoms) or Complicated (systemic symptoms)? @ -uncomplicated Side effects of treatment? @ -[No] Exacerbation, Progression, or Severe Exacerbation? @ -[No] Poses a threat to life or bodily function? How? (Chest pain, [place], [place], pneumonia, PE, COPD, DKA, ARF, appy, cholecystitis, CVA, Diverticulitis, Homicidal, Suicidal, threat to staff... and all critical care pts) @ -[No] Disposition Clinical Impression: Contusion of right hand Disposition: HOME SELF-CARE Condition: Stable Instructions (If sedation given, give patient instructions): Contusion in Adults (ED) Additional Instructions: Please return to the Emergency Department if symptoms worsen or any other concerns. Is patient prescribed a controlled substance at d/c from ED?: No Referrals: None,Stated [Primary Care Provider] - 1-2 days Time of Disposition: 10:38
[2023-07-19 11:21] VITALS: BP 122/71; PULSE 74
== END 2023-07-19 11:06 | disposition home or self-care (01) ==
LOC: EC 09:38
DX: S60.221A Contusion of right hand, initial encounter (principal); F12.90 Cannabis use, unspecified, uncomplicated; F17.200 Nicotine dependence, unspecified, uncomplicated; Z86.59 Personal history of other mental and behavioral disorders; X50.0XXA Overexertion from strenuous movement or load, initial encounter
CPT/HCPCS: 99283